=== PATIENT | male | born 1975 | race Caucasian/White ===

== ENCOUNTER 2021-05-28 12:46 | Emergency (ER) | payer OTHER, SELFPAY ==
[2021-05-28] VITALS (11 sets, daily range): BP systolic 149–155; BP diastolic 87–106; PULSE 66–94; RESP 11–22; TEMP 37.2; O2SAT 94–99
--- NOTE | 2021-05-28 12:45 | RT.EKG_ITS ---
APPROVED REPORT Exam: Resting ECG Reason for Exam: chest pain Patient Location: E HR:70 bpm ECG Measurements Heart Rate 70 AXIS TN 140 P 48 QRSd 117 QRS -9 QT 388 T 48 QTc 419 Conclusion Sinus rhythm...normal P axis, V-rate 60- 99 Nonspecific intraventricular conduction delay...QRSd >115mS, not LBBB/RBBB Nonspecific T abnormalities, anterior leads...T <-0.10mV, V2-V4
--- NOTE | 2021-05-28 12:54 | W.ED.GENAD ---
Discharge Plan Disposition Patient Disposition: HOME Condition: Stable Discharge Details Clinical Impression: Chest pain, Rib contusion, Head trauma Primary Care Provider: Christiano Bui ED Provider: Ramon Stewart Home Meds and New Rx's Prescriptions: Continued ibuprofen 200 MG tablet 800 mg PO Q8H PRN RF: 0 aspirin 81 mg Tablet,Delayed Release (Dr/Ec) 81 mg PO DAILY RF: 0 omega-3 fatty acids Capsule 1,000 mg PO DAILY RF: 0 Discharge Instructions Instructions: Rib Contusion (ED) Additional Instructions: if pain continues next week follow up with your primary care provider return to the emergency department if you have severe worsening pain, feel more ill or difficulty breathing return to the emergency department Medical Decision Making 45 yo male with no chronic medical problems comes in after 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 Denies loc and has had left sided chest pain since. He has also had numbness sensation over both cheeks. Denies vision changes, weakness, dyspnea, abdominal tenderness. He arrives hemodynamically stable, speaking in full sentences. He has a small abrasion lateral to the left eye, perrl, eomi, no hematomas, normal sensation of the face and normal speech and no facial droop. He has tenderness with palpation to the left side of his chest in the lateral clavicular line over 5-6 ribs. No abdominal tenderness. Full range of motion of the arms and legs. I suspect rib contusion but will xray to evaluate for fracture vs pneumothorax. Unclear etiology of his numbness, given it is bilateral and has NIH of 0 doubt cva, will check for electrolyte abnormalities. His pain started after a fall and is reproducible so doubt acs, heart score is 2. No tearing back pain and normal vascular exam so doubt dissection. Wells low and perc negative so doubt PE. labs and imaging unremarkable, remains stable with no changes on exam. Suspect mild concussion and rib contusion. He is stable for d/c and advised to follow up with pcp and return precautions given Differential Diagnosis Differential Diagnosis: rib contusion vs fracture, concussion Imaging Data Radiologic Study: Attestation: I personally reviewed and interpreted this imaging study as follows: Imaging: CT Scan My impression: no acute findings Radiologist's impression: Radiologic Study #2: Attestation: I personally reviewed and interpreted this imaging study as follows: Imaging: X-Ray My impression: no acute findings Lab Data Lab results reviewed: Yes I reviewed the patient's lab results. ECG Data Attestation: I personally reviewed and interpreted this ECG (s) as follows: Prior ECG tracings: not available for review Interpretation: sinus rhythm, rate of 70,nonspecific t wave incersions in anterior and lateral leads, no stemi HPI General Mode of arrival: ambulatory. Date/Time Provider Initiated Documentation: 05/28/21 12:47. Limitations to Documentation: no limitations. Information obtained by: patient. History of Present Illness 45 year old M presents to the emergency department with the chief complaint of left sided chest pain, described as moderate, with intensity rated at 4. Quality is described as aching, Patient started experiencing this day(s) (3) and it has been constant. No relieving factors improve symptom(s), No exacerbating factors reported . Patient notes no other symptoms.. Patient did receive the following treatments prior to arrival, none Related Data Home Medications Medication Instructions Recorded Confirmed ibuprofen 800 mg PO Q8H PRN tab-cap 11/03/12 05/28/21 aspirin 81 mg PO DAILY 05/28/21 05/28/21 omega-3 fatty acids 1,000 mg PO DAILY 05/28/21 05/28/21 Allergies Allergy/AdvReac Type Severity Reaction Status Date / Time No Known Allergies Allergy Unverified 05/28/21 13:00 Review of Systems All systems reviewed & are unremarkable except as noted in HPI and below Constitutional Constitutional: Denies chills, Denies fever(s) and Denies weakness Cardiovascular Cardiovascular: Denies dyspnea Respiratory Respiratory: Denies cough and Denies dyspnea Gastrointestinal Gastrointestinal: Denies abdominal pain, Denies nausea and Denies vomiting Musculoskeletal Musculoskeletal: Denies joint swelling Neurologic Neurologic: Denies weakness Psychiatric Psychiatric: Denies depression [facility] Active Problem List (Updated 05/28/21 @ 14:01 by Ramon Stewart MD) Right foot pain (Acute) Chest pain (Acute) Rib contusion (Acute) Head trauma (Acute) Medical History (Updated 05/28/21 @ 14:01 by Ramon Stewart MD) CARDIAC ARRHYTHMIA Inguinal hernia TESTICULAR TORTION Surgical History (Updated 04/06/18 @ 14:34 [email or web address] Repair of inguinal hernia (~1995) RIGHT Social History Smoking/Tobacco Use Status: Never Smoking risk assessment performed?: Yes Alcohol Intake: current Alcohol Intake frequency: 3 or more drinks per day Alcohol type: beer Drug use: Never Substance use type: does not use Do you feel safe at home: Yes Do you feel safe in your relationship?: Yes Exam Const General: no acute distress Orientation: alert HENMT Head: normal to inspection Ears: external ears normal General nose exam: external nose normal Mouth: moist mucous membranes Eyes General: appearance normal, both eyes and all related structures Neck Neck: normal visual inspection Chest Chest: tenderness Resp Effort & Inspection: normal respiratory effort and able to speak in complete sentences Cardio Rate: regular rate GI Palpation: soft and nontender Skin General skin exam: no rashes or lesions noted Neuro General: patient alert and patient oriented x3 Extrem General: normal to inspection Psych Mental Status: mental status grossly normal
--- NOTE | 2021-05-28 13:00 | DI.CT_ITS ---
Exam(s) CT HEAD WO EXAM: CT HEAD WO CLINICAL HISTORY: fall, pain. TECHNIQUE: Imaging Protocol: Axial computed tomography images with coronal and sagittal reformatted images were created and reviewed COMPARISON: No exams were available for comparison FINDINGS: Ventricles and Extra axial spaces: Normal in size and morphology for the patient's age. Hemorrhage: None. Cerebral parenchyma: Normal. Midline shift: None. Brainstem/Cerebellum: Normal. Calvarium: Normal. Visualized Paranasal sinuses/Mastoids: Clear. Soft Tissues: Unremarkable. IMPRESSION: 1. No acute intracranial process. 2. Results of this exam have been verbally communicated with provider. RADIATION DOSE DELIVERED: 1,796.09mGy.cm Total DLP DATA REPOSITORY: All CT scans at this facility are submitted to the National Radiology Data Registry (NRDR) Dose Index Registry (DIR) with the [employer] ([employer]). RADIATION OPTIMIZATION: All CT scans at this facility use at least one of these dose optimization te chniques: automated exposure control; mA and/or kV adjustment per patient size (includes targeted exa ms where dose is matched to clinical indication); or iterative reconstruction.
[2021-05-28 13:06] LABS: Abs Immature Grans 0.02 10^3/uL (0.0-0.06); Absolute Basophil Count 0.04 10^3/uL (0.0-0.2); Absolute Eosinophil Count 0.13 10^3/uL (0.0-0.7); Absolute Lymphocyte Count 1.48 10^3/uL (1.2-3.4); Absolute Monocyte Count 0.54 10^3/uL (0.1-0.8); Absolute Neutrophil Count 3.43 10^3/uL (1.2-6.7); Basophils % 0.7; Eosinophils % 2.3; HCT 43.8 % (40.0-50.0); HGB 14.7 g/dL (13.5-17.5); Immature Grans % 0.4; Lymphocytes % 26.2; MCH 29.8 pg (27.0-33.0); MCHC 33.6 % (32.0-36.0); MCV 88.8 fL (80-95); MPV 9.8 fL (8.0-11.0); Monocytes % 9.6; Neutrophils % 60.8; Nucleated RBC 0 %; Platelet Count 219 10^3/uL (130-400); RBC 4.93 10^6/uL (4.36-5.78); RDW 12.1 % (11.8-14.1); RDW-SD 39.6 fL; WBC 5.64 10^3/uL (4.4-10.8)
[2021-05-28 13:24] LABS: ALT 70 U/L (16-63); AST 46 U/L (15-37); Albumin 4.6 g/dL (3.4-5.0); Alkaline Phosphatase 77 U/L (46-116); Anion Gap 9.7 mmol/L (3-11); BUN 10 mg/dL (7-18); Bilirubin, Total 0.5 mg/dL (0.2-1.0); CO2 27.3 mmol/L (21.0-32.0); Calcium 9.1 mg/dL (8.5-10.1); Chloride 101 mmol/L (98-107); Glucose 107 mg/dL (74-106); Magnesium 2.1 mg/dL (1.8-2.4); Sodium 138 mmol/L (136-145); Total Protein 8.2 g/dL (6.4-8.2)
[2021-05-28 13:26] LABS: Troponin I < 0.05 ng/mL (<0.06)
--- NOTE | 2021-05-28 13:35 | DI.RAD_ITS ---
Exam(s) XR CHEST 2V PA LATERAL EXAM: XR CHEST 2V PA LATERAL CLINICAL HISTORY: chest pain TECHNIQUE: 2D digital imaging was performed of the chest. Two images were obtained. PA and lateral views were obtained. COMPARISON: No exams were available for comparison FINDINGS: MEDIASTINUM: Normal. HEART: Normal. PULMONARY VASCULATURE: Normal. LUNGS: Clear. PLEURAL SPACE: No pleural effusion or pneumothorax. BONE:Within normal limits for the patient's age. OTHER FINDINGS:Normal. IMPRESSION: No acute pulmonary findings. DATA REPOSITORY: RADIATION DOSE DELIVERED:
--- NOTE | 2021-05-28 14:30 | W.ED.GENAD ---
Discharge Plan Disposition Patient Disposition: HOME Condition: Stable Discharge Details Clinical Impression: Chest pain, Rib contusion, Head trauma Primary Care Provider: Christiano Bui ED Provider: Ramon Stewart Home Meds and New Rx's Prescriptions: Continued ibuprofen 200 MG tablet 800 mg PO Q8H PRN RF: 0 aspirin 81 mg Tablet,Delayed Release (Dr/Ec) 81 mg PO DAILY RF: 0 omega-3 fatty acids Capsule 1,000 mg PO DAILY RF: 0 Discharge Instructions Instructions: Rib Contusion (ED) Additional Instructions: if pain continues next week follow up with your primary care provider return to the emergency department if you have severe worsening pain, feel more ill or difficulty breathing return to the emergency department HPI General Mode of arrival: ambulatory. Date/Time Provider Initiated Documentation: 05/28/21 12:47. Limitations to Documentation: no limitations. Information obtained by: patient. History of Present Illness with intensity rated at 4. Quality is described as aching, No relieving factors improve symptom(s), No exacerbating factors reported . Patient notes no other symptoms.. Patient did receive the following treatments prior to arrival, none Related Data Home Medications Medication Instructions Recorded Confirmed ibuprofen 800 mg PO Q8H PRN tab-cap 11/03/12 05/28/21 aspirin 81 mg PO DAILY 05/28/21 05/28/21 omega-3 fatty acids 1,000 mg PO DAILY 05/28/21 05/28/21 Allergies Allergy/AdvReac Type Severity Reaction Status Date / Time No Known Allergies Allergy Unverified 05/28/21 13:00 General Stated Complaint: Chest Pain MANINDER: 2 PFS Active Problem List (Updated 05/28/21 @ 14:01 by Ramon Stewart MD) Right foot pain (Acute) Chest pain (Acute) Rib contusion (Acute) Head trauma (Acute) Medical History (Updated 05/28/21 @ 14:01 by Ramon Stewart MD) CARDIAC ARRHYTHMIA Inguinal hernia TESTICULAR TORTION Surgical History (Updated 04/06/18 @ 14:34 by [employer] [place]) Repair of inguinal hernia (~1995) RIGHT Social History Smoking/Tobacco Use Status: Never Smoking risk assessment performed?: Yes Alcohol Intake: current Alcohol Intake frequency: 3 or more drinks per day Alcohol type: beer Drug use: Never Substance use type: does not use Do you feel safe at home: Yes Do you feel safe in your relationship?: Yes Course Vital Signs Vital signs: Vital Signs Respiratory Rate 11 L 05/28/21 12:53 Temperature 37.2 C 05/28/21 12:54 Temperature Source Temporal Artery Scan 05/28/21 12:54 Pulse 91 H 05/28/21 13:01 Pulse 78 05/28/21 14:10 Respiratory Rate 22 05/28/21 14:10 Respiratory Effort Non-Labored 05/28/21 14:11 Respiratory Depth Normal 05/28/21 14:11 Respiratory Pattern Normal 05/28/21 14:11 Blood Pressure 149/106 H 05/28/21 13:01 Blood Pressure Mean 114 05/28/21 13:01 Blood Pressure Position Sitting 05/28/21 12:54 Pulse Oximetry 94 05/28/21 14:10 Oxygen Delivery Method Room Air 05/28/21 12:54 Oxygen Flow Rate 0 05/28/21 12:54 Pain Level 5 05/28/21 14:11 Lab/Test Results Lab/Test Results: Laboratory Tests Range/Units 05/28/21 05/28/21 12:55 12:55 WBC (4.4-10.8) 10^3/uL 5.64 RBC (4.36-5.78) 10^6/uL 4.93 Hgb (13.5-17.5) g/dL 14.7 Hct (40.0-50.0) % 43.8 MCV (80-95) fL 88.8 MCH (27.0-33.0) pg 29.8 MCHC (32.0-36.0) % 33.6 RDW (11.8-14.1) % 12.1 Plt Count (130-400) 10^3/uL 219 MPV (8.0-11.0) fL 9.8 Immature Gran % 0.4 Neutrophils % 60.8 Lymphocytes % 26.2 Monocytes % 9.6 Eosinophils % 2.3 Basophils % 0.7 Nucleated RBC % % 0 Absolute Neutrophils (1.2-6.7) 10^3/uL 3.43 Absolute Lymphocytes (1.2-3.4) 10^3/uL 1.48 Absolute Monocytes (0.1-0.8) 10^3/uL 0.54 Absolute Eosinophils (0.0-0.7) 10^3/uL 0.13 Absolute Basophils (0.0-0.2) 10^3/uL 0.04 Sodium (136-145) mmol/L 138 Potassium (3.5-5.1) mmol/L 4.0 Chloride (98-107) mmol/L 101 Carbon Dioxide (21.0-32.0) mmol/L 27.3 Anion Gap (3-11) mmol/L 9.7 BUN (7-18) mg/dL 10 Creatinine (0.70-1.30) mg/dL 1.0 Estimated GFR/1.73 m2 (mL/min/1.73m2) >= 60.00 Glucose (74-106) mg/dL 107 H Calcium (8.5-10.1) mg/dL 9.1 Magnesium (1.8-2.4) mg/dL 2.1 Total Bilirubin (0.2-1.0) mg/dL 0.5 AST (15-37) U/L 46 H ALT (16-63) U/L 70 H Alkaline Phosphatase (46-116) U/L 77 Troponin I (<0.06) ng/mL < 0.05 Total Protein (6.4-8.2) g/dL 8.2 Albumin (3.4-5.0) g/dL 4.6 PAWSS Have you Been Recently Intoxicated or Drunk Within the Last 30 days?: Yes Have you Ever Experienced Previous Episodes of Alcohol Withdrawal?: No Have you ever Experienced Withdrawal Seizures?: No Have you ever Experienced Delirium Tremens(DT)s?: No Have you ever undergone Alcohol Rehabilitation Treatment (i.e, inpt ot outpatient treatment programs)?: No Have you ever Experienced Blackouts?: No Have you ever Combined Alcohol with other Downers within the last 90 days?: No Have you ever Combined Alcohol with any other Substance of Abuse during the last 90 days?: No Positive Blood Alcohol level on Presentation? [PCS.BAL]: No Evidence of Increased Autonomic Activity (i.e. HR>120, tremor, sweating, agitation, nausea)?: No Result: 1
== END 2021-05-28 14:22 | disposition home or self-care (01) ==
PROVIDERS: Emergency Provider Emergency Medicine; PCP Family Medicine Adult Medicine
DX: S20.212A Contusion of left front wall of thorax, initial encounter (principal); R07.89 Other chest pain; S09.8XXA Other specified injuries of head, initial encounter; R20.0 Anesthesia of skin
CPT/HCPCS: 36415; 80053; 93005; 99285; 70450; 71046; 83735; 84484; 85025; 93010; 99284